=== PATIENT | male | born 1960 | race Native Hawaiian/Other Pacific Islander ===

== ENCOUNTER 2017-05-18 16:06 | Emergency (ER) | payer BC ==
[~2017-05-18] VITALS: Ht 162.6 cm; Wt 108.9 kg
== END 2017-05-18 17:12 | disposition left against medical advice (07) ==
LOC: ED 16:06
DX: M54.9 Dorsalgia, unspecified (principal); R10.9 Unspecified abdominal pain
CPT/HCPCS: 81000; 99281

== ENCOUNTER 2018-03-04 11:56 | Outpatient (CLI) | payer BC | END 2018-03-04 19:24 | disposition home or self-care (01) | LOC: RAD 11:56 | DX: M79.672 Pain in left foot (principal) ==